=== PATIENT | female | born 1985 | race African-American/Black ===

== ENCOUNTER 2016-10-11 14:48 | Emergency (ER) | payer SELFPAY ==
[~2016-10-11] VITALS: Ht 165.1 cm; Wt 75.0 kg
[~2016-10-11 14:48] MED LIST: BIRTH CONTROL; INHALER; MOTRIN 800800 MG/TAB PO
[2016-10-11 15:21] LABS: MEAN CELL VOLUME 88 fl (80.0-100.0); MEAN CORPUSCULAR HGB CONC 34 g/dl (33.0-37.0); MEAN PLATELET VOLUME 11.4 fl (7.4-10.4); PLATELET COUNT 208 K/mm3 (130-400); RED BLOOD COUNT 3.87 M/mm3 (4.10-5.30); REDCELL DISTRIBUTION WIDTH-CV 13.4 % (11.5-14.5); WHITE BLOOD COUNT 11.5 K/mm3 (4.8-10.8)
[2016-10-11 15:25] LABS: ADD PATHOLOGY DIFF REVIEW NO; HEMOGLOBIN 11.5 g/dl (12.5-16.0); MEAN CORPUSCULAR HEMOGLOBIN 30 pg (27.0-31.0)
[2016-10-11 15:28] LABS: PH 6 (5-8); URINE APPEARANCE Hazy; URINE BACTERIA Rare /hpf; URINE BILIRUBIN Negative (NEGATIVE); URINE BLOOD 2+ (NEGATIVE); URINE COLOR Straw; URINE GLUCOSE Negative (NEGATIVE); URINE KETONE Negative (NEGATIVE); URINE RBC 0-2 /hpf; URINE UROBILINOGEN Negative (NEGATIVE); URINE WBC >50 /hpf
[2016-10-11 15:32] LABS: ADJUSTED CALCIUM 8.5 mg/dL (8.4-10.2); ALBUMIN 4.2 gm/dL (3.5-5.0); BILIRUBIN,TOTAL 0.6 mg/dL (0.0-1.0); CALCIUM 8.7 mg/dL (8.4-10.2); CREATININE, serum 0.81 mg/dL (0.52-1.25); POTASSIUM 3.3 mmol/L (3.4-5.0); TOTAL PROTEIN 7.7 gm/dL (6.4-8.2)
[2016-10-11 15:51] LABS: BAND 7 % (0-10); EOSINOPHIL 1 % (0-4); METAMYELOCYTE 1 % (0-0); NEUTROPHILS 72 % (42.0-75.2); PLATELET ESTIMATE NORMAL (NORMAL); TOTAL CELLS COUNTED 100
[2016-10-11] MEDS ORDERED: CEFTIN 250250 MG/TAB PO (17:01)
[2016-10-11 17:24] VITALS: BP 119/71; PULSE 90; TEMP 98.7
== END 2016-10-11 17:25 | disposition home or self-care (01) ==
LOC: COL.ER 14:48
PROVIDERS: Physician Assistant
DX: N10 Acute pyelonephritis (principal)
CPT/HCPCS: J0696; J1885

== ENCOUNTER 2017-05-01 19:38 | Emergency (ER) | payer SELFPAY ==
[~2017-05-01] VITALS: Ht 165.1 cm; Wt 80.9 kg
[~2017-05-01 19:38] MED LIST changes: +CEFTIN 250250 MG/TAB PO
[2017-05-01 19:51] VITALS: BP 136/93; TEMP 99.7
[2017-05-01 20:54] LABS: BASO % 0.4 % (0.0-2.0); EOS % 0.8 % (0-4.0); GRAN # 3.1 (1.4-6.5); GRAN % 62.5 % (42.2-75.2); HEMOGLOBIN 12.3 g/dl (12.5-16.0); LYMPH # 1.1 (1.2-3.4); LYMPH % 21.6 % (20.0-51.0); MEAN CELL VOLUME 89 fl (80.0-100.0); MEAN CORPUSCULAR HEMOGLOBIN 30 pg (27.0-31.0); MEAN CORPUSCULAR HGB CONC 33 g/dl (33.0-37.0); MEAN PLATELET VOLUME 11.3 fl (7.4-10.4); MONO # 0.7 (0.1-0.6); MONO % 14.3 % (1.7-9.3); PLATELET COUNT 253 K/mm3 (130-400); RED BLOOD COUNT 4.17 M/mm3 (4.10-5.30); REDCELL DISTRIBUTION WIDTH-CV 14.6 % (11.5-14.5)
[2017-05-01 20:58] LABS: HEMATOCRIT 36.9 % (37.0-47.0)
[2017-05-01 21:07] LABS: ALBUMIN 3.9 gm/dL (3.5-5.0); BILIRUBIN,TOTAL 0.2 mg/dL (0.0-1.0); C-REACTIVE PROTEIN 0.8 mg/dL (0.0-0.9); CALCIUM 8.8 mg/dL (8.4-10.2); CREATININE, serum 0.86 mg/dL (0.52-1.25); POTASSIUM 3.8 mmol/L (3.4-5.0); TOTAL PROTEIN 7.5 gm/dL (6.4-8.2)
[2017-05-01] MEDS ORDERED: ZOFRAN ODT4 MG PO (22:14)
[2017-05-01 22:32] VITALS: PULSE 78
== END 2017-05-01 22:30 | disposition home or self-care (01) ==
LOC: COL.ER 19:38
PROVIDERS: Emergency Medicine
DX: R10.13 Epigastric pain (principal); R11.2 Nausea with vomiting, unspecified; R19.7 Diarrhea, unspecified; J45.909 Unspecified asthma, uncomplicated
CPT/HCPCS: J2060; J2405; J2550; J7030

== ENCOUNTER → 2018-09-11 | Outpatient (CLI) | payer SELFPAY ==
[~2018-09-11] MED LIST changes: +ZOFRAN ODT4 MG PO
== END ==
LOC: MC.RAD 07:30
DX: N63.10 Unspecified lump in the right breast, unspecified quadrant (principal)

== ENCOUNTER 2019-02-14 18:15 | Emergency (ER) | payer MEDICAID ==
[~2019-02-14] VITALS: Ht 162.6 cm; Wt 73.6 kg
[2019-02-14 18:24] VITALS: BP 144/87; TEMP 97.3
[2019-02-14 19:10] LABS: COLLECTION METHOD CLEAN CATCH
[2019-02-14 19:11] LABS: BASO % 0.3 % (0.0-2.0); EOS # 0.2 (0.0-0.7); EOS % 1.9 % (0-4.0); GRAN # 7.2 (1.4-6.5); GRAN % 65.1 % (42.2-75.2); HEMOGLOBIN 11.5 g/dl (12.5-16.0); LYMPH # 2.3 (1.2-3.4); LYMPH % 20.7 % (20.0-51.0); MEAN CELL VOLUME 94 fl (80.0-100.0); MEAN CORPUSCULAR HEMOGLOBIN 31 pg (27.0-31.0); MEAN CORPUSCULAR HGB CONC 34 g/dl (33.0-37.0); MEAN PLATELET VOLUME 11.3 fl (7.4-10.4); MONO # 1.3 (0.1-0.6); MONO % 11.3 % (1.7-9.3); PLATELET COUNT 210 K/mm3 (130-400); RED BLOOD COUNT 3.66 M/mm3 (4.10-5.30); REDCELL DISTRIBUTION WIDTH-CV 13.1 % (11.5-14.5)
[2019-02-14 19:17] LABS: MUCOUS Present /lpf; PH 5 (5-8); SQUAMOUS EPITHELIAL 0-2 /hpf; URINE APPEARANCE Clear; URINE BACTERIA None Seen /hpf; URINE BILIRUBIN Negative (NEGATIVE); URINE BLOOD 2+ (NEGATIVE); URINE COLOR Yellow; URINE GLUCOSE Negative (NEGATIVE); URINE KETONE Negative (NEGATIVE); URINE LEUKOCYTE ESTERASE Negative (NEGATIVE); URINE NITRATE Negative (NEGATIVE); URINE PROTEIN(semi-quant) 1+ (NEGATIVE); URINE UROBILINOGEN Negative (NEGATIVE)
[2019-02-14 19:18] LABS: HEMATOCRIT 34.3 % (37.0-47.0)
[2019-02-14 19:26] LABS: ALBUMIN 3.7 gm/dL (3.5-5.0); BILIRUBIN,TOTAL 0.2 mg/dL (0.0-1.0); CALCIUM 9.1 mg/dL (8.4-10.2); CREATININE, serum 0.68 (0.52-1.25); POTASSIUM 4.1 mmol/L (3.4-5.0); TOTAL PROTEIN 7.2 gm/dL (6.4-8.2)
[2019-02-14] MEDS ORDERED: PHENERGAN 25 TA25 MG PO (20:07)
[2019-02-14 21:16] VITALS: PULSE 84
== END 2019-02-14 21:16 | disposition home or self-care (01) ==
LOC: COL.ER 18:15
PROVIDERS: Emergency Medicine
DX: O99.342 Other mental disorders complicating pregnancy, second trimester (principal); R55 Syncope and collapse; O23.592 Infection of other part of genital tract in pregnancy, second trimester; Z3A.15 15 weeks gestation of pregnancy
CPT/HCPCS: J7030

== ENCOUNTER → 2019-03-12 | Outpatient (CLI) | payer MEDICAID ==
[~2019-03-12] MED LIST changes: +PHENERGAN 25 TA25 MG PO
== END ==
LOC: COL.VAS 10:41
DX: O99.89 Other specified diseases and conditions complicating pregnancy, childbirth and the puerperium (principal); Z3A.19 19 weeks gestation of pregnancy; M79.605 Pain in left leg

== ENCOUNTER 2019-07-27 05:35 | Inpatient (IN) | payer MEDICAID ==
[2019-07-27] VITALS (65 sets, daily range): BP systolic 112–163; BP diastolic 58–100; PULSE 76–108; TEMP 98.2–98.9
[~2019-07-27] VITALS: Ht 162.6 cm; Wt 86.8 kg
--- NOTE | 2019-07-27 05:15 | NUR ---
to lr 4 per clinical unit educator and trev Fabian rn. 0503 covid screen neg.and sve per duc undetermined dilation cervix difficult to locate- large amt bright red discharge with exam. pt unable to be still- panting with ctxs.2nd rn here to check cervix. 0550 iv start.
[2019-07-27] MEDS ORDERED: PRENATAL TABLET PO (06:00)
[2019-07-27] MEDS ORDERED: VALTREX 50500 MG/TAB PO (06:01)
--- NOTE | 2019-07-27 06:10 | NUR ---
Dr. Alston to room. SVE /-3. Patient tense and breathing through contractions. Plan of care reviewed.
[2019-07-27 06:34] LABS: BASO % 0.3 % (0.0-2.0); EOS # 0.1 (0.0-0.7); EOS % 1.2 % (0-4.0); GRAN # 4.2 (1.4-6.5); GRAN % 57.4 % (42.2-75.2); LYMPH # 1.9 (1.2-3.4); LYMPH % 26.5 % (20.0-51.0); MEAN CELL VOLUME 90 fl (80.0-100.0); MEAN CORPUSCULAR HEMOGLOBIN 31 pg (27.0-31.0); MEAN CORPUSCULAR HGB CONC 34 g/dl (33.0-37.0); MEAN PLATELET VOLUME 11.7 fl (7.4-10.4); MONO # 1.1 (0.1-0.6); MONO % 14.3 % (1.7-9.3); PLATELET COUNT 176 K/mm3 (130-400); RED BLOOD COUNT 3.91 M/mm3 (4.10-5.30); REDCELL DISTRIBUTION WIDTH-CV 13.2 % (11.5-14.5)
[2019-07-27 06:35] LABS: HEMATOCRIT 35.1 % (37.0-47.0)
--- NOTE | 2019-07-27 07:05 | NUR ---
0705- Sera Rodriguez CRNA at bedside. Patient sitting upright in bed for epidural placement. 0713- Epidural test dose by Sera Rodriguez CRNA. Patient tolerates well. No adverse reactions noted. Dr. Alston updated on patient assessment. 0730- SVE /-3 with increased bloody show. 0740- Patient repositioned LL following epidural. Updated on plan of care and safety reviewed.
--- NOTE | 2019-07-27 07:30 | NUR ---
Report from Jamar Fabian RN and care of patient assumed. RN at bedside to introduce self and review plan of care. Sera Rodriguez CRNA in transit. 0645- Dr. Alston at bedside, reviews FHR strip. SVE per provider /3 with bloody show noted. Patient repositioned LL.
[2019-07-27 08:19] LABS: TRICYCLIC ANTIDEPRESS URINE NEGATIVE
--- NOTE | 2019-07-27 10:10 | NUR ---
Patient reports nasuea and increased pain. SVE unchanged. Patient given Zofran, see EMAR. Patient repositioned LL with right leg in stirrup. Sera Rodriguez FACILITY OPERATIONS MANAGER notified.
--- NOTE | 2019-07-27 10:41 | NUR ---
Sera Cast CRNA at bedside, see anesthesia record. Patient repositioned sitting upright in frederic position to aid with pain relief and promote descent. Variable decelerations noted intermittently to 70 bpm, patient repositioned WL then LL. Variables resolving with interventions. WIll update physician.
--- NOTE | 2019-07-27 11:10 | NUR ---
Patient very uncomfortable with contractions despite anesthesia intervetions. Sera Rodriguez CRNA called to bedside. Decision to replace epidural. 1115- Patient sitting on edge of bed for epidural replacement. 1125- Test dose via epidural per Sera Rodriguez CRNA. Patient tolerates well. 1130- Patient repositioned WL. SVE unchanged, patient repositioned LL with RL in stirrup.
--- NOTE | 2019-07-27 12:30 | NUR ---
SVE /0. Patient repositioned RL with left leg in stirrup. See physician notification.
--- NOTE | 2019-07-27 17:15 | NUR ---
Dr. Archibald at bedside. Reviews R strip. SVE per provider /1. Discussing plan of care, orders to start Pitocin augmentation at this time. Patient agrees and denies questions. 1720- Pitocin started at 2 mU per order.
--- NOTE | 2019-07-27 17:20 | NUR ---
Sera Rodriguez JACQUARD LOOM HEDDLES TIER notified that patient is reporting increased pain with contractions. Dr. Archibald remains on unit, aware of elevated blood pressures and increased pain. No New orders.
--- NOTE | 2019-07-27 18:30 | NUR ---
Report received, care assumed. Patient sleeping, comfortable with epidural.
--- NOTE | 2019-07-27 19:50 | NUR ---
Dr. Archibald at bedside. R strip reviewed. SVE /0. Plan of care reviewed.
--- NOTE | 2019-07-27 21:00 | NUR ---
Patient very uncomfortable with contractions, tense and breathing through them, feeling the urge to push. SVE 9-/100/+1. Dr. Archibald called for delivery.
--- NOTE | 2019-07-27 21:19 | NUR ---
2109 SVE complete/+2. 2113 Dr. Archibald to room, patient prepped for delivery and instructed to push with contractions. 2118 Spontaneous vaginal delivery of viable female by Dr. Archibald. Cord clamped and cut and infant to the care of the nursery RN. 2121 Spontaneous delivery of placenta by Dr. Archibald. Pitocin infusing at 333ml/hr per orders and protocol. Fundus firm, lochia WNL. Perineum intact.
[2019-07-28 00:30] VITALS: BP 136/72; PULSE 94; TEMP 98.6
[2019-07-28 04:40] VITALS: BP 129/70; PULSE 100; TEMP 99.6
[2019-07-28 06:30] VITALS: BP 138/83; PULSE 105; TEMP 99
--- NOTE | 2019-07-28 10:28 | NUR ---
Filter Press Pumper received consult on patient and as patient had a positive urine drug screen for marijuana during (01/07/19). Patient had negative urine drug screen upon admission. Infant cord blood pending. SW met with patient to discuss resources and supports. Patient lives in [place] with her fiance and infant's father, Master Kenny (ph#[phone]). Patient has two other children at home, ages 12 and 6. Patient states she named her Delfino. Patient reports she is employed at [employer] but is going to take maternity leave. Patient states her fiance will be going back to school at [employer] and they are looking into childcare options at this time. Patient hopes to get child into childcare at [employer] when her fiance is a student there. Patient states she has WIC already set up through the [facility] Department. Patient states she is and feels she has everything she needs including car seat, crib, diapers, wipes, clothes. Patient does states she is working on gettins a couple more blankets and some hand mittens. SW provided care package from [facility]. Patient states she feels supported by her fiance and also has support from her mother, Cristin Gonzalez (ph#[phone]) who lives locally. SW provided and reviewed [facility] Resource Guide with patient. SW addressed positive urine drug screen and patient states before she knew she was , she was using about four times a week or more. Patient states when she found out she was at 10 weeks she reduced the amount she used to once a week, then completely quit around New Years. SW also addressed anxiety during . Patient states she has telehealth therapy through her insurance that has helped her. Patient denies any medications for anxiety. Patient denies any further questions or concerns. SW made CPS report due to positive urine drug screen. Intake #[id number]. TAMMI collaborated the above information to RNJosie.
[2019-07-28 12:55] VITALS: BP 130/82; PULSE 87; TEMP 97.6
[2019-07-28 16:12] VITALS: BP 123/69; PULSE 79; TEMP 97.6
[2019-07-28 20:00] VITALS: BP 143/91; PULSE 84; TEMP 98.4
[2019-07-29 07:43] VITALS: BP 132/89; PULSE 90; TEMP 98.3
[2019-07-29] MEDS ORDERED: IBU800 M1 PO (11:17)
[2019-07-29] MEDS ORDERED: PERCOCET 325 MG1 TA2 PO (11:17)
--- NOTE | 2019-07-29 16:30 | NUR ---
Discharge instructions given, pt verbalizes understanding. No further questions. Bands matched and hugs tag removed. Pt to personal vehicle via wc d/t mom not having carseat on unit. Paternity papers signed.
== END 2019-07-29 16:45 | disposition home or self-care (01) | DRG 806 ==
LOC: LDRO 05:35 → OB 05:49 → LDR 05:49 → OB 07-28
PROVIDERS: ADMIT Student in an Organized Health Care Education/Training Program
PROC: 10E0XZZ Delivery of Products of Conception, External Approach (ICD-10-PCS; principal; 2019-07-27)
DX: O99.344 Other mental disorders complicating childbirth (principal); O98.52 Other viral diseases complicating childbirth; Z37.0 Single live birth; O99.214 Obesity complicating childbirth; O76 Abnormality in fetal heart rate and rhythm complicating labor and delivery; O99.62 Diseases of the digestive system complicating childbirth; E66.9 Obesity, unspecified; B00.9 Herpesviral infection, unspecified; Z3A.38 38 weeks gestation of pregnancy; F41.9 Anxiety disorder, unspecified; F32.9 Major depressive disorder, single episode, unspecified; K21.9 Gastro-esophageal reflux disease without esophagitis
CPT/HCPCS: J2400; J2405; J2590; J7120